=== PATIENT | female | born 1955 | race Caucasian/White ===

== ENCOUNTER 2019-06-21 16:09 | Inpatient (IN) | payer MEDICARE, OTHER ==
[~2019-06-21] VITALS: Ht 160 cm; Wt 73.9 kg
[2019-06-21] MEDS ORDERED: ONDANSETRON HCL 4MG/2ML INJ IV STA (18:40)
[2019-06-21] MEDS ORDERED: SODIUM CHLORIDE 0.9% 1000ML BAG (SEPSIS BOLUS) IV ONE (18:45)
[2019-06-21] MEDS ORDERED: PIPERACILLIN/TAZ 3.375G PREMIX 50 ML IV ONE (18:45)
[2019-06-21] MEDS ORDERED: VANCOMYCIN 1 G PREMIX 200 ML IV ONE (18:45)
[2019-06-21 19:27] LABS: CHLORIDE 107 mEq/L (98-107); INR 1.1; PROTHROMBIN TIME 11.1 sec (9.6-11.0)
[2019-06-21 19:28] LABS: BASOPHILS % 0.3 % (0.0-2.0); EOSINOPHILS % 0.4 % (0.0-5.0); HEMOGLOBIN. 10.2 g/dL (12.0-16.0); LYMPHOCYTES % 34.8 % (20.0-50.0); MEAN CORPUSCULAR HEMOGLOBIN 24.8 pg (28.0-32.0); MEAN CORPUSCULAR VOLUME 75.1 fL (81.0-99.0); MONOCYTES % 4.7 % (2.0-8.0); NEUTROPHILS % 59.8 % (40.0-76.0); PLATELET 436 x1000/uL (130-400); RED BLOOD CELL COUNT 4.13 mill/uL (4.2-5.4)
[2019-06-21] MEDS ORDERED: IOHEXOL-300 50 ML BOTTLE IV ONE (22:40)
[2019-06-21] MEDS ORDERED: IOHEXOL-300 100 ML BOTTLE ONE (22:41)
[2019-06-22] MEDS ORDERED: MORPHINE SULFATE 4 MG/ML CPJ (NOT FOR IM USE) IV STA (01:39)
[2019-06-22] MEDS ORDERED: ONDANSETRON HCL 4MG/2ML INJ IV STA (01:39)
[2019-06-22] MEDS ORDERED: VANCOMYCIN 1 G PREMIX 200 ML IV NR (02:45)
[2019-06-22] MEDS ORDERED: IPRATROPIUM/ALBUTEROL 0.5-3(2.5)MG/3ML NEB HHN PRN (11:30)
[2019-06-22] MEDS ORDERED: LORAZEPAM 0.5MG TABLET PO PRN (11:30)
[2019-06-22 12:49] LABS: CLARITY URINE CLOUDY (CLEAR); COLOR URINE YELLOW (YELLOW); KETONES URINE TRACE (NEGATIVE); LEUKOCYTE ESTERASE URINE 3+ (NEGATIVE); NITRITE URINE NEGATIVE (NEGATIVE); OCCULT BLOOD URINE TRACE (NEGATIVE); PROTEIN URINE TRACE (NEGATIVE); SPECIFIC GRAVITY URINE 1.024 (1.005-1.030); UROBILINOGEN URINE 0.2 E.U./dL (0.2-1.0)
[2019-06-22] MEDS: DEXT 5%/0.45% NACL 1000ML 1,000 ML IV SCH (12:56)
[2019-06-22 18:13] LABS: BASOPHILS % 0.5 % (0.0-2.0); EOSINOPHILS % 0.9 % (0.0-5.0); HEMATOCRIT. 29.3 % (36.0-48.0); LYMPHOCYTES % 28.4 % (20.0-50.0); MEAN CORPUSCULAR HEMOGLOBIN 25.7 pg (28.0-32.0); MEAN CORPUSCULAR VOLUME 75.2 fL (81.0-99.0); MEAN PLATELET VOLUME 6.7 fl (7.4-10.4); MONOCYTES % 5.4 % (2.0-8.0); NEUTROPHILS % 64.8 % (40.0-76.0); PLATELET 389 x1000/uL (130-400); RED BLOOD CELL COUNT 3.89 mill/uL (4.2-5.4); RED CELL DISTRIBUTION WIDTH 15.7 % (11.6-14.6)
[2019-06-22 18:21] LABS: CHLORIDE 111 mEq/L (98-107)
[2019-06-22 22:00] VITALS: BP 147/75
[2019-06-22] MEDS: SODIUM CHLORIDE 0.9% INJ 3ML FLUSH IVF SCH (22:00)
[2019-06-23] VITALS (12 sets, daily range): BP systolic 122–157; BP diastolic 53–92
[2019-06-23] MEDS: MORPHINE SULFATE 2 MG/ML CPJ (NOT FOR IM USE) IV PRN ×4 (00:55→22:07)
[2019-06-23] MEDS ORDERED: POTASSIUM CHLORIDE INJ 40 MEQ in DEXT 5% WATER 250 ML IV NR (01:00)
[2019-06-23] MEDS: DEXT 5%/0.45% NACL 1000ML 1,000 ML IV SCH ×2 (02:49→16:10)
[2019-06-23] MEDS: SODIUM CHLORIDE 0.9% INJ 3ML FLUSH IVF SCH ×3 (05:16→22:07)
[2019-06-23 06:52] LABS: BASOPHILS % 0.4 % (0.0-2.0); EOSINOPHILS % 1.6 % (0.0-5.0); HEMATOCRIT. 26.2 % (36.0-48.0); HEMOGLOBIN. 8.6 g/dL (12.0-16.0); LYMPHOCYTES % 48.4 % (20.0-50.0); MEAN CORPUSCULAR HEMOGLOBIN 24.7 pg (28.0-32.0); MEAN CORPUSCULAR VOLUME 74.6 fL (81.0-99.0); MONOCYTES % 7.4 % (2.0-8.0); NEUTROPHILS % 42.2 % (40.0-76.0); PLATELET 374 x1000/uL (130-400); RED CELL DISTRIBUTION WIDTH 15.6 % (11.6-14.6)
[2019-06-23 06:56] LABS: CHLORIDE 114 mEq/L (98-107)
[2019-06-23 07:26] LABS: LDL CHOLESTEROL 122 mg/dL (5-100)
[2019-06-23 07:27] LABS: HDL CHOLESTEROL 26 mg/dL (40-59)
[2019-06-23] MEDS: ENOXAPARIN 40MG/0.4ML SYR SUBCUT SCH (08:24)
[2019-06-23] MEDS: PIPERACILLIN/TAZOBACTAM 3.375 G in DEXT 5% WATER 100 ML IV SCH ×2 (11:17→17:26)
[2019-06-23] MEDS: VANCOMYCIN 750 MG PREMIX 150 ML IV SCH ×2 (12:01→22:13)
[2019-06-23 13:48] LABS: FERRITIN 177 ng/mL (10-291)
[2019-06-23 14:05] LABS: TOTAL IRON BINDING CAPACITY 203 ug/dL (250-450)
[2019-06-23 14:39] LABS: VITAMIN B12 SERUM >2000 pg/mL pg/mL (211-911)
[2019-06-23] MEDS: FERROUS SULFATE 325MG TABLET PO SCH (17:19)
[2019-06-23] MEDS: ASCORBIC ACID 250 MG TABLET PO SCH (21:00)
[2019-06-23] MEDS: FOLIC ACID 1 MG, THIAMINE HCL 100 MG, MVI, ADULT NO.1 10 ML in DEXTROSE 5% WATER 1,000 ML IV SCH ×4 (22:06)
[2019-06-23 23:33] LABS: HEPATITIS B SURFACE ANTIGEN NEGATIVE
[2019-06-24] VITALS (12 sets, daily range): BP systolic 119–158; BP diastolic 57–94
[2019-06-24 00:03] LABS: HEPATITIS A AB IGM NEGATIVE (NEGATIVE)
[2019-06-24] MEDS: PIPERACILLIN/TAZOBACTAM 3.375 G in DEXT 5% WATER 100 ML IV SCH ×4 (00:28→17:13)
[2019-06-24] MEDS: MORPHINE SULFATE 2 MG/ML CPJ (NOT FOR IM USE) IV PRN ×4 (05:21→20:18)
[2019-06-24] MEDS: SODIUM CHLORIDE 0.9% INJ 3ML FLUSH IVF SCH ×3 (05:22→22:00)
[2019-06-24] MEDS: FERROUS SULFATE 325MG TABLET PO SCH ×3 (07:30→17:04)
[2019-06-24] MEDS: ASCORBIC ACID 250 MG TABLET PO SCH ×3 (08:39→21:47)
[2019-06-24] MEDS: VANCOMYCIN 750 MG PREMIX 150 ML IV SCH (08:43)
[2019-06-24] MEDS: ENOXAPARIN 40MG/0.4ML SYR SUBCUT SCH (08:44)
[2019-06-24] MEDS: ALBUTEROL (0.083%) 2.5MG/3ML NEB HHN SCH (15:04)
[2019-06-24] MEDS: DEXT 5%/0.45% NACL 1000ML 1,000 ML IV SCH (17:14)
[2019-06-24] MEDS: FOLIC ACID 1 MG, THIAMINE HCL 100 MG, MVI, ADULT NO.1 10 ML in DEXTROSE 5% WATER 1,000 ML IV SCH ×4 (21:47)
[2019-06-25] VITALS (10 sets, daily range): BP systolic 115–145; BP diastolic 57–76
[2019-06-25] MEDS: PIPERACILLIN/TAZOBACTAM 3.375 G in DEXT 5% WATER 100 ML IV SCH ×3 (00:58→17:45)
[2019-06-25] MEDS: VANCOMYCIN 1 G PREMIX 200 ML IV SCH ×2 (02:20→20:19)
[2019-06-25] MEDS: DEXT 5%/0.45% NACL 1000ML 1,000 ML IV SCH ×2 (07:31→20:51)
[2019-06-25] MEDS: FERROUS SULFATE 325MG TABLET PO SCH ×3 (08:00→16:15)
[2019-06-25] MEDS: ALBUTEROL (0.083%) 2.5MG/3ML NEB HHN SCH ×3 (08:10→21:29)
[2019-06-25] MEDS: ASCORBIC ACID 250 MG TABLET PO SCH ×2 (09:00→20:53)
[2019-06-25 09:07] LABS: FOLATE HEMATOCRIT 27.6 % (34.0-46.6)
[2019-06-25 09:20] LABS: BASOPHILS % 0.4 % (0.0-2.0); EOSINOPHILS % 2.7 % (0.0-5.0); HEMATOCRIT. 27.5 % (36.0-48.0); HEMOGLOBIN. 9.2 g/dL (12.0-16.0); LYMPHOCYTES % 44.6 % (20.0-50.0); MEAN CORPUSCULAR VOLUME 74.4 fL (81.0-99.0); MEAN PLATELET VOLUME 7.3 fl (7.4-10.4); MONOCYTES % 8.9 % (2.0-8.0); NEUTROPHILS % 43.4 % (40.0-76.0); PLATELET 351 x1000/uL (130-400); RED BLOOD CELL COUNT 3.69 mill/uL (4.2-5.4)
[2019-06-25] MEDS: ENOXAPARIN 40MG/0.4ML SYR SUBCUT SCH (10:10)
[2019-06-25] MEDS: SODIUM CHLORIDE 0.9% INJ 3ML FLUSH IVF SCH ×2 (14:00→21:26)
[2019-06-25 14:12] LABS: FOLATE RBC 1844 ng/mL (>498)
[2019-06-25] MEDS: MORPHINE SULFATE 2 MG/ML CPJ (NOT FOR IM USE) IV PRN ×2 (16:12→20:52)
[2019-06-25] MEDS: FOLIC ACID 1 MG, THIAMINE HCL 100 MG, MVI, ADULT NO.1 10 ML in DEXTROSE 5% WATER 1,000 ML IV SCH ×4 (21:55)
[2019-06-26] VITALS (12 sets, daily range): BP systolic 103–158; BP diastolic 48–76
[2019-06-26] MEDS: PIPERACILLIN/TAZOBACTAM 3.375 G in DEXT 5% WATER 100 ML IV SCH ×4 (00:38→18:09)
[2019-06-26] MEDS: ALBUTEROL (0.083%) 2.5MG/3ML NEB HHN SCH ×4 (02:05→20:24)
[2019-06-26] MEDS: SODIUM CHLORIDE 0.9% INJ 3ML FLUSH IVF SCH ×3 (05:06→21:49)
[2019-06-26 05:08] LABS: BASOPHILS % 0.5 % (0.0-2.0); EOSINOPHILS % 3.3 % (0.0-5.0); HEMATOCRIT. 27.2 % (36.0-48.0); HEMOGLOBIN. 9.2 g/dL (12.0-16.0); LYMPHOCYTES % 44.5 % (20.0-50.0); MEAN CORPUSCULAR HEMOGLOBIN 25.2 pg (28.0-32.0); MEAN CORPUSCULAR VOLUME 74.4 fL (81.0-99.0); MEAN PLATELET VOLUME 6.7 fl (7.4-10.4); MONOCYTES % 10.5 % (2.0-8.0); NEUTROPHILS % 41.2 % (40.0-76.0); PLATELET 341 x1000/uL (130-400); RED BLOOD CELL COUNT 3.66 mill/uL (4.2-5.4); RED CELL DISTRIBUTION WIDTH 16.2 % (11.6-14.6)
[2019-06-26] MEDS: MORPHINE SULFATE 2 MG/ML CPJ (NOT FOR IM USE) IV PRN ×3 (05:25→19:03)
[2019-06-26 05:28] LABS: CHLORIDE 111 mEq/L (98-107)
[2019-06-26] MEDS: FERROUS SULFATE 325MG TABLET PO SCH ×3 (07:28→18:00)
[2019-06-26] MEDS: ASCORBIC ACID 250 MG TABLET PO SCH ×2 (09:00→21:00)
[2019-06-26] MEDS: ENOXAPARIN 40MG/0.4ML SYR SUBCUT SCH (09:00)
[2019-06-26] MEDS: DEXT 5%/0.45% NACL 1000ML 1,000 ML IV SCH ×2 (10:04→23:31)
[2019-06-26] MEDS ORDERED: POTASSIUM CHLORIDE INJ 40 MEQ in DEXT 5% WATER 250 ML IV SCH ×2 (12:00→18:00)
[2019-06-26] MEDS: VANCOMYCIN 1 G PREMIX 200 ML IV SCH (15:36)
[2019-06-26] MEDS: FOLIC ACID 1 MG, THIAMINE HCL 100 MG, MVI, ADULT NO.1 10 ML in DEXTROSE 5% WATER 1,000 ML IV SCH ×4 (21:49)
[2019-06-27] VITALS (11 sets, daily range): BP systolic 119–146; BP diastolic 61–73
[2019-06-27] MEDS: PIPERACILLIN/TAZOBACTAM 3.375 G in DEXT 5% WATER 100 ML IV SCH ×5 (00:26→23:02)
[2019-06-27] MEDS: ALBUTEROL (0.083%) 2.5MG/3ML NEB HHN SCH (02:12)
[2019-06-27] MEDS: SODIUM CHLORIDE 0.9% INJ 3ML FLUSH IVF SCH ×3 (05:20→21:19)
[2019-06-27 07:01] LABS: CHLORIDE 111 mEq/L (98-107)
[2019-06-27] MEDS ORDERED: BUPIVACAINE HCL/PF 0.5% (5MG/ML) 10ML ONE ×2 (07:09→07:56)
[2019-06-27] MEDS: FERROUS SULFATE 325MG TABLET PO SCH ×3 (08:00→18:00)
[2019-06-27] MEDS: ASCORBIC ACID 250 MG TABLET PO SCH ×2 (08:02→21:19)
[2019-06-27] MEDS: ENOXAPARIN 40MG/0.4ML SYR SUBCUT SCH (08:02)
[2019-06-27] MEDS ORDERED: ROCURONIUM BROMIDE 10MG/ML VIAL 5ML IV ONE (09:01)
[2019-06-27] MEDS ORDERED: FENTANYL CITRATE/PF 50MCG/ML 2ML VIAL ONE ×2 (09:01→09:53)
[2019-06-27] MEDS ORDERED: SUCCINYLCHOLINE CHLORIDE 200MG/10ML IV ONE (09:02)
[2019-06-27] MEDS ORDERED: GLYCOPYRROLATE 0.2 MG/ML 2ML VIAL ONE (09:02)
[2019-06-27] MEDS ORDERED: METOCLOPRAMIDE HCL 10MG/2ML VIAL ONE (09:02)
[2019-06-27] MEDS ORDERED: LIDOCAINE HCL/PF 1% 10 MG/ML 5ML VIAL ONE (09:02)
[2019-06-27] MEDS ORDERED: PROPOFOL 200MG/20ML VIAL IV ONE (09:02)
[2019-06-27] MEDS ORDERED: ONDANSETRON HCL 4MG/2ML INJ ONE (09:02)
[2019-06-27] MEDS ORDERED: SODIUM CHLORIDE 0.9% 10ML VIAL ONE ×2 (09:02→09:28)
[2019-06-27] MEDS ORDERED: PHENYLEPHRINE HCL 10 MG/ML 1ML (IV VIAL) IV ONE (09:02)
[2019-06-27] MEDS ORDERED: MIDAZOLAM HCL 2 MG/2 ML VIAL ONE (09:02)
[2019-06-27] MEDS ORDERED: EPHEDRINE SULFATE 50MG/ML VIAL ONE (09:02)
[2019-06-27] MEDS ORDERED: NEOSTIGMINE METHYLSULFATE 1MG/ML 10 ML VIAL ONE (09:02)
[2019-06-27] MEDS ORDERED: ALBUMIN HUMAN 12.5G/250ML (5%) IV ONE (09:11)
[2019-06-27] MEDS ORDERED: IOPAMIDOL 20 ML VIAL IT ONE (09:25)
[2019-06-27] MEDS ORDERED: IOPAMIDOL 61% 300/15 ML VIAL IT ONE (09:26)
[2019-06-27] MEDS ORDERED: DIATR MEGLU/DIATRIZOATE SOLN 30ML ONE (09:32)
[2019-06-27] MEDS ORDERED: SODIUM CHLORIDE 0.9% 1,000 ML IV ONE (10:23)
[2019-06-27] MEDS ORDERED: MORPHINE SULFATE 2 MG/ML CPJ (NOT FOR IM USE) IV PRN (10:30)
[2019-06-27] MEDS ORDERED: MEPERIDINE HCL/PF 25MG/ML CPJ IV PRN (10:30)
[2019-06-27] MEDS ORDERED: ONDANSETRON HCL 4MG/2ML INJ IV PRN (10:30)
[2019-06-27] MEDS: HYDROMORPHONE HCL/PF 2MG/ML CPJ IV PRN ×4 (10:49→11:22)
[2019-06-27] MEDS: MORPHINE SULFATE 2 MG/ML CPJ (NOT FOR IM USE) IV PRN ×3 (12:53→21:20)
[2019-06-27] MEDS: VANCOMYCIN 750 MG PREMIX 150 ML IV SCH (16:27)
[2019-06-27] MEDS: DEXT 5%/0.45% NACL 1000ML 1,000 ML IV SCH (16:28)
[2019-06-27] MEDS: FOLIC ACID 1 MG, THIAMINE HCL 100 MG, MVI, ADULT NO.1 10 ML in DEXTROSE 5% WATER 1,000 ML IV SCH ×4 (21:19)
[2019-06-28] VITALS (15 sets, daily range): BP systolic 107–153; BP diastolic 41–83
[2019-06-28] MEDS: DEXT 5%/0.45% NACL 1000ML 1,000 ML IV SCH ×2 (02:11→17:52)
[2019-06-28] MEDS: PIPERACILLIN/TAZOBACTAM 3.375 G in DEXT 5% WATER 100 ML IV SCH ×3 (05:05→17:20)
[2019-06-28] MEDS: SODIUM CHLORIDE 0.9% INJ 3ML FLUSH IVF SCH ×3 (05:06→22:00)
[2019-06-28] MEDS: VANCOMYCIN 750 MG PREMIX 150 ML IV SCH (06:07)
[2019-06-28] MEDS: ASCORBIC ACID 250 MG TABLET PO SCH ×2 (08:41→22:26)
[2019-06-28] MEDS: ENOXAPARIN 40MG/0.4ML SYR SUBCUT SCH (08:41)
[2019-06-28] MEDS: FERROUS SULFATE 325MG TABLET PO SCH ×3 (08:42→17:20)
[2019-06-28] MEDS: MORPHINE SULFATE 2 MG/ML CPJ (NOT FOR IM USE) IV PRN ×3 (09:14→17:51)
[2019-06-28] MEDS: FOLIC ACID 1 MG, THIAMINE HCL 100 MG, MVI, ADULT NO.1 10 ML in DEXTROSE 5% WATER 1,000 ML IV SCH ×4 (22:27)
[2019-06-29] VITALS (13 sets, daily range): BP systolic 104–149; BP diastolic 53–87
[2019-06-29] MEDS: PIPERACILLIN/TAZOBACTAM 3.375 G in DEXT 5% WATER 100 ML IV SCH ×4 (00:27→17:20)
[2019-06-29] MEDS: VANCOMYCIN 750 MG PREMIX 150 ML IV SCH ×2 (01:40→18:12)
[2019-06-29] MEDS: MORPHINE SULFATE 2 MG/ML CPJ (NOT FOR IM USE) IV PRN ×2 (04:19→18:23)
[2019-06-29] MEDS: SODIUM CHLORIDE 0.9% INJ 3ML FLUSH IVF SCH ×3 (06:12→22:42)
[2019-06-29] MEDS: ENOXAPARIN 40MG/0.4ML SYR SUBCUT SCH (09:21)
[2019-06-29] MEDS: FERROUS SULFATE 325MG TABLET PO SCH ×3 (09:21→18:14)
[2019-06-29] MEDS: ASCORBIC ACID 250 MG TABLET PO SCH ×2 (09:21→20:41)
[2019-06-29 09:40] LABS: CHLORIDE 109 mEq/L (98-107)
[2019-06-29] MEDS: POTASSIUM CHLORIDE 20MEQ/PACKET GT SCH ×2 (11:10→14:57)
[2019-06-29] MEDS: FOLIC ACID 1 MG, THIAMINE HCL 100 MG, MVI, ADULT NO.1 10 ML in DEXTROSE 5% WATER 1,000 ML IV SCH ×4 (20:42)
[2019-06-29] MEDS: HYDROCODONE/ACETAMINOPHEN 5/325MG TABLET PO PRN (20:42)
[2019-06-30] VITALS (8 sets, daily range): BP systolic 116–142; BP diastolic 60–80
[2019-06-30] MEDS: PIPERACILLIN/TAZOBACTAM 3.375 G in DEXT 5% WATER 100 ML IV SCH ×3 (01:31→11:42)
[2019-06-30] MEDS: SODIUM CHLORIDE 0.9% INJ 3ML FLUSH IVF SCH ×3 (05:35→22:01)
[2019-06-30] MEDS: HYDROCODONE/ACETAMINOPHEN 5/325MG TABLET PO PRN ×2 (05:51→11:42)
[2019-06-30] MEDS: ASCORBIC ACID 250 MG TABLET PO SCH ×2 (09:22→21:00)
[2019-06-30] MEDS: FERROUS SULFATE 325MG TABLET PO SCH ×3 (09:22→18:15)
[2019-06-30] MEDS: ENOXAPARIN 40MG/0.4ML SYR SUBCUT SCH (09:23)
[2019-06-30] MEDS: VANCOMYCIN 750 MG PREMIX 150 ML IV SCH (13:48)
[2019-06-30] MEDS: FOLIC ACID 1 MG, THIAMINE HCL 100 MG, MVI, ADULT NO.1 10 ML in DEXTROSE 5% WATER 1,000 ML IV SCH ×4 (23:05)
[2019-06-30] MEDS: MORPHINE SULFATE 2 MG/ML CPJ (NOT FOR IM USE) IV PRN (23:36)
[2019-07-01] VITALS (9 sets, daily range): BP systolic 119–148; BP diastolic 62–95
[2019-07-01] MEDS: VANCOMYCIN 750 MG PREMIX 150 ML IV SCH ×2 (05:26→23:43)
[2019-07-01] MEDS: MORPHINE SULFATE 2 MG/ML CPJ (NOT FOR IM USE) IV PRN ×3 (05:46→23:43)
[2019-07-01] MEDS: SODIUM CHLORIDE 0.9% INJ 3ML FLUSH IVF SCH ×3 (06:44→23:44)
[2019-07-01] MEDS: ASCORBIC ACID 250 MG TABLET PO SCH (08:06)
[2019-07-01] MEDS: ENOXAPARIN 40MG/0.4ML SYR SUBCUT SCH (08:06)
[2019-07-01] MEDS: FERROUS SULFATE 325MG TABLET PO SCH ×3 (08:06→17:53)
[2019-07-01] MEDS ORDERED: POTASSIUM CHLORIDE 20MEQ TABLET SR PO PRN (13:15)
[2019-07-01 14:11] LABS: BASOPHILS % 0.4 % (0.0-2.0); EOSINOPHILS % 3.4 % (0.0-5.0); HEMOGLOBIN. 9.1 g/dL (12.0-16.0); LYMPHOCYTES % 42.3 % (20.0-50.0); MEAN CORPUSCULAR HEMOGLOBIN 24.7 pg (28.0-32.0); MEAN CORPUSCULAR VOLUME 73.8 fL (81.0-99.0); MEAN PLATELET VOLUME 6.6 fl (7.4-10.4); MONOCYTES % 5.3 % (2.0-8.0); NEUTROPHILS % 48.6 % (40.0-76.0); PLATELET 423 x1000/uL (130-400); RED BLOOD CELL COUNT 3.66 mill/uL (4.2-5.4); RED CELL DISTRIBUTION WIDTH 16.4 % (11.6-14.6)
[2019-07-01 14:18] LABS: CHLORIDE 108 mEq/L (98-107)
[2019-07-01] MEDS ORDERED: DIATR MEGLU/DIATRIZOATE SOLN 30ML ONE (15:21)
[2019-07-01] MEDS: DEXT 5%/0.45% NACL 1000ML 1,000 ML IV SCH (16:52)
[2019-07-01] MEDS: FOLIC ACID 1 MG, THIAMINE HCL 100 MG, MVI, ADULT NO.1 10 ML in DEXTROSE 5% WATER 1,000 ML IV SCH ×4 (23:42)
[2019-07-02] VITALS (9 sets, daily range): BP systolic 118–150; BP diastolic 35–120
[2019-07-02] MEDS: ENOXAPARIN 40MG/0.4ML SYR SUBCUT SCH (08:14)
[2019-07-02] MEDS: MORPHINE SULFATE 2 MG/ML CPJ (NOT FOR IM USE) IV PRN ×3 (08:15→22:51)
[2019-07-02] MEDS: FERROUS SULFATE 325MG TABLET PO SCH ×3 (08:15→17:16)
[2019-07-02] MEDS: SODIUM CHLORIDE 0.9% INJ 3ML FLUSH IVF SCH ×2 (13:55→22:00)
[2019-07-02] MEDS ORDERED: POTASSIUM CHLORIDE 20MEQ/PACKET PO NR (14:00)
[2019-07-02] MEDS: FOLIC ACID 1 MG, THIAMINE HCL 100 MG, MVI, ADULT NO.1 10 ML in DEXTROSE 5% WATER 1,000 ML IV SCH ×8 (17:16→21:59)
[2019-07-02] MEDS: VANCOMYCIN 750 MG PREMIX 150 ML IV SCH (17:16)
[2019-07-02] MEDS: DEXT 5%/0.45% NACL 1000ML 1,000 ML IV SCH (17:24)
[2019-07-03] VITALS: BP 134/70
[2019-07-03 04:00] VITALS: BP 120/62
[2019-07-03] MEDS: SODIUM CHLORIDE 0.9% INJ 3ML FLUSH IVF SCH ×3 (06:00→21:44)
[2019-07-03 07:37] VITALS: BP 111/57
[2019-07-03] MEDS: FERROUS SULFATE 325MG TABLET PO SCH ×3 (09:48→18:34)
[2019-07-03] MEDS: MORPHINE SULFATE 10MG/5ML ORAL SOLN UDC PO PRN (09:48)
[2019-07-03] MEDS: ENOXAPARIN 40MG/0.4ML SYR SUBCUT SCH (09:49)
[2019-07-03 12:00] VITALS: BP 104/59
[2019-07-03] MEDS: VANCOMYCIN 750 MG PREMIX 150 ML IV SCH (12:53)
[2019-07-03 15:53] VITALS: BP 117/67
[2019-07-03] MEDS: DEXT 5%/0.45% NACL 1000ML 1,000 ML IV SCH (18:35)
[2019-07-03 20:00] VITALS: BP 130/65
[2019-07-03] MEDS: FOLIC ACID 1 MG, THIAMINE HCL 100 MG, MVI, ADULT NO.1 10 ML in DEXTROSE 5% WATER 1,000 ML IV SCH ×4 (21:44)
[2019-07-04] VITALS: BP 129/68
[2019-07-04 04:00] VITALS: BP 136/72
[2019-07-04] MEDS: MORPHINE SULFATE 10MG/5ML ORAL SOLN UDC PO PRN ×3 (06:10→18:28)
[2019-07-04] MEDS: SODIUM CHLORIDE 0.9% INJ 3ML FLUSH IVF SCH ×3 (07:38→23:03)
[2019-07-04 08:00] VITALS: BP 121/67
[2019-07-04] MEDS: FERROUS SULFATE 325MG TABLET PO SCH ×3 (09:36→18:17)
[2019-07-04] MEDS: ENOXAPARIN 40MG/0.4ML SYR SUBCUT SCH (09:36)
[2019-07-04 12:00] VITALS: BP 119/62
[2019-07-04 16:00] VITALS: BP 119/59
[2019-07-04 20:00] VITALS: BP 133/63
[2019-07-05] VITALS (7 sets, daily range): BP systolic 113–137; BP diastolic 59–72
[2019-07-05] MEDS: MORPHINE SULFATE 10MG/5ML ORAL SOLN UDC PO PRN ×2 (01:37→17:26)
[2019-07-05 07:34] LABS: BASOPHILS % 0.8 % (0.0-2.0); EOSINOPHILS % 2.9 % (0.0-5.0); HEMATOCRIT. 27.3 % (36.0-48.0); LYMPHOCYTES % 38.7 % (20.0-50.0); MEAN CORPUSCULAR HEMOGLOBIN 24.6 pg (28.0-32.0); MEAN CORPUSCULAR VOLUME 74.9 fL (81.0-99.0); MEAN PLATELET VOLUME 7.5 fl (7.4-10.4); NEUTROPHILS % 52.6 % (40.0-76.0); PLATELET 391 x1000/uL (130-400); RED BLOOD CELL COUNT 3.64 mill/uL (4.2-5.4); RED CELL DISTRIBUTION WIDTH 16.4 % (11.6-14.6)
[2019-07-05 07:47] LABS: CHLORIDE 107 mEq/L (98-107)
[2019-07-05] MEDS: SODIUM CHLORIDE 0.9% INJ 3ML FLUSH IVF SCH ×3 (07:54→21:22)
[2019-07-05] MEDS: FERROUS SULFATE 325MG TABLET PO SCH ×3 (08:40→17:10)
[2019-07-05] MEDS: ENOXAPARIN 40MG/0.4ML SYR SUBCUT SCH (08:40)
[2019-07-05 16:31] LABS: AMYLASE 110 IU/L (25-115)
[2019-07-05] MEDS: IPRATROPIUM/ALBUTEROL 0.5-3(2.5)MG/3ML NEB HHN SCH ×2 (18:42→21:15)
[2019-07-05] MEDS: GUAIFENESIN 600MG ER TABLET PO SCH (20:25)
[2019-07-06] VITALS: BP 127/68
[2019-07-06] MEDS: IPRATROPIUM/ALBUTEROL 0.5-3(2.5)MG/3ML NEB HHN SCH ×4 (01:04→20:20)
[2019-07-06 04:00] VITALS: BP 122/57
[2019-07-06] MEDS: MORPHINE SULFATE 10MG/5ML ORAL SOLN UDC PO PRN ×2 (05:08→11:56)
[2019-07-06] MEDS: SODIUM CHLORIDE 0.9% INJ 3ML FLUSH IVF SCH ×2 (05:08→14:02)
[2019-07-06 07:11] LABS: CHLORIDE 111 mEq/L (98-107)
[2019-07-06 07:14] LABS: BASOPHILS % 0.7 % (0.0-2.0); EOSINOPHILS % 2.5 % (0.0-5.0); HEMATOCRIT. 25.5 % (36.0-48.0); HEMOGLOBIN. 8.6 g/dL (12.0-16.0); LYMPHOCYTES % 34.9 % (20.0-50.0); MEAN CORPUSCULAR HEMOGLOBIN 25.2 pg (28.0-32.0); MEAN CORPUSCULAR VOLUME 74.8 fL (81.0-99.0); MEAN PLATELET VOLUME 7.4 fl (7.4-10.4); MONOCYTES % 8.2 % (2.0-8.0); NEUTROPHILS % 53.7 % (40.0-76.0); PLATELET 367 x1000/uL (130-400); RED BLOOD CELL COUNT 3.41 mill/uL (4.2-5.4); RED CELL DISTRIBUTION WIDTH 16.7 % (11.6-14.6)
[2019-07-06 08:00] VITALS: BP 116/64
[2019-07-06] MEDS: FERROUS SULFATE 325MG TABLET PO SCH ×3 (09:22→18:41)
[2019-07-06] MEDS: ENOXAPARIN 40MG/0.4ML SYR SUBCUT SCH (09:22)
[2019-07-06] MEDS: GUAIFENESIN 600MG ER TABLET PO SCH ×2 (09:22→21:00)
[2019-07-06 12:00] VITALS: BP 122/64
[2019-07-06 16:00] VITALS: BP 113/60
[2019-07-06 20:00] VITALS: BP 114/59
[2019-07-06] MEDS: MORPHINE SULFATE 10MG/5ML ORAL SOLN UDC PEG PRN (21:03)
[2019-07-06] MEDS: GUAIFENESIN 200MG/10ML SUGAR FREE UDC PO PRN (21:59)
[2019-07-07] VITALS: BP 124/68
[2019-07-07] MEDS: IPRATROPIUM/ALBUTEROL 0.5-3(2.5)MG/3ML NEB HHN SCH ×3 (02:24→22:10)
[2019-07-07 04:00] VITALS: BP 108/61
[2019-07-07 07:12] LABS: CHLORIDE 108 mEq/L (98-107)
[2019-07-07 08:00] VITALS: BP 117/67
[2019-07-07] MEDS: GUAIFENESIN 600MG ER TABLET PO SCH ×2 (09:00→21:00)
[2019-07-07] MEDS: GUAIFENESIN 200MG/10ML SUGAR FREE UDC PO PRN ×4 (09:28→21:26)
[2019-07-07] MEDS: ENOXAPARIN 40MG/0.4ML SYR SUBCUT SCH (09:28)
[2019-07-07] MEDS: FERROUS SULFATE 325MG TABLET PO SCH ×3 (09:28→16:50)
[2019-07-07] MEDS: MORPHINE SULFATE 10MG/5ML ORAL SOLN UDC PEG PRN ×2 (09:42→17:01)
[2019-07-07 11:48] LABS: BASOPHILS % 0.8 % (0.0-2.0); EOSINOPHILS % 1.6 % (0.0-5.0); HEMATOCRIT. 26.1 % (36.0-48.0); HEMOGLOBIN. 8.6 g/dL (12.0-16.0); MEAN CORPUSCULAR HEMOGLOBIN 24.5 pg (28.0-32.0); MEAN CORPUSCULAR VOLUME 74.4 fL (81.0-99.0); MEAN PLATELET VOLUME 7.5 fl (7.4-10.4); NEUTROPHILS % 57.6 % (40.0-76.0); PLATELET 380 x1000/uL (130-400); RED BLOOD CELL COUNT 3.51 mill/uL (4.2-5.4); RED CELL DISTRIBUTION WIDTH 16.8 % (11.6-14.6)
[2019-07-07 12:00] VITALS: BP 97/50
[2019-07-07] MEDS: SODIUM CHLORIDE 0.9% INJ 3ML FLUSH IVF SCH (13:08)
[2019-07-07 16:00] VITALS: BP 145/62
[2019-07-07 20:00] VITALS: BP 113/56
[2019-07-08] VITALS: BP 112/58
[2019-07-08] MEDS: IPRATROPIUM/ALBUTEROL 0.5-3(2.5)MG/3ML NEB HHN SCH ×4 (01:46→21:40)
[2019-07-08] MEDS: MORPHINE SULFATE 10MG/5ML ORAL SOLN UDC PEG PRN ×2 (06:03→12:18)
[2019-07-08] MEDS: GUAIFENESIN 200MG/10ML SUGAR FREE UDC PO PRN (06:39)
[2019-07-08 08:00] VITALS: BP 124/55
[2019-07-08] MEDS: FERROUS SULFATE 325MG TABLET PO SCH ×3 (08:28→16:51)
[2019-07-08] MEDS: SODIUM CHLORIDE 0.9% INJ 3ML FLUSH IVF SCH ×4 (08:28→22:07)
[2019-07-08] MEDS: ENOXAPARIN 40MG/0.4ML SYR SUBCUT SCH (08:29)
[2019-07-08] MEDS: GUAIFENESIN 600MG ER TABLET PO SCH ×2 (08:30→22:06)
[2019-07-08 09:31] LABS: BASOPHILS % 0.6 % (0.0-2.0); EOSINOPHILS % 4.1 % (0.0-5.0); HEMATOCRIT. 26.5 % (36.0-48.0); HEMOGLOBIN. 8.7 g/dL (12.0-16.0); LYMPHOCYTES % 36.3 % (20.0-50.0); MEAN CORPUSCULAR HEMOGLOBIN 24.5 pg (28.0-32.0); MEAN CORPUSCULAR VOLUME 74.4 fL (81.0-99.0); MONOCYTES % 8.4 % (2.0-8.0); NEUTROPHILS % 50.6 % (40.0-76.0); PLATELET 357 x1000/uL (130-400); RED BLOOD CELL COUNT 3.56 mill/uL (4.2-5.4); RED CELL DISTRIBUTION WIDTH 16.7 % (11.6-14.6)
[2019-07-08 09:53] LABS: CHLORIDE 107 mEq/L (98-107)
[2019-07-08 12:00] VITALS: BP 141/40
[2019-07-08 16:00] VITALS: BP 125/75
[2019-07-08 20:00] VITALS: BP 111/67
[2019-07-09] VITALS (7 sets, daily range): BP systolic 97–128; BP diastolic 61–77
[2019-07-09] MEDS: IPRATROPIUM/ALBUTEROL 0.5-3(2.5)MG/3ML NEB HHN SCH ×3 (03:53→14:18)
[2019-07-09] MEDS: SODIUM CHLORIDE 0.9% INJ 3ML FLUSH IVF SCH ×2 (08:18→15:56)
[2019-07-09] MEDS: ENOXAPARIN 40MG/0.4ML SYR SUBCUT SCH (08:18)
[2019-07-09] MEDS: GUAIFENESIN 600MG ER TABLET PO SCH (08:18)
[2019-07-09 12:24] LABS: CHLORIDE 107 mEq/L (98-107)
[2019-07-09] MEDS ORDERED: LOPERAMIDE HCL 1 MG/7.5 ML 240ML BOTTLE PO PRN (12:45)
[2019-07-09] MEDS ORDERED: LOPERAMIDE 1 MG/7.5 ML UDC PO PRN (12:45)
== END 2019-07-09 21:32 | disposition home or self-care (01) | DRG 853 ==
LOC: ER 16:30 → CANBEDREQ 06-22 07:01 → 5EST 06-22 10:43 → ENRESERV 06-22 20:01 → 6EST 07-04 01:36
PROVIDERS: ADMIT Family Medicine; ATTEND Family Medicine
PROC: 0DH60UZ Insertion of Feeding Device into Stomach, Open Approach (ICD-10-PCS; principal; 2019-06-27)
PROC: 02HV33Z Insertion of Infusion Device into Superior Vena Cava, Percutaneous Approach (ICD-10-PCS; 2019-07-01)
PROC: B548ZZA Ultrasonography of Superior Vena Cava, Guidance (ICD-10-PCS; 2019-07-01)
DX: A41.9 Sepsis, unspecified organism (principal); E43 Unspecified severe protein-calorie malnutrition; K22.3 Perforation of esophagus; L02.11 Cutaneous abscess of neck; N39.0 Urinary tract infection, site not specified; L89.159 Pressure ulcer of sacral region, unspecified stage; R74.0 Nonspecific elevation of levels of transaminase and lactic acid dehydrogenase [LDH]; D50.9 Iron deficiency anemia, unspecified; J45.909 Unspecified asthma, uncomplicated; K76.89 Other specified diseases of liver; Z93.1 Gastrostomy status; Z93.0 Tracheostomy status; Z68.28 Body mass index [BMI] 28.0-28.9, adult
CPT/HCPCS: 36415; 70491; 71045; 71260; 74018; 76700; 76937; 80048; 80053; 80061; 80076; 80202; 81003; 82150; 82248; 82607; 82728; 82747; 83540; 83550; 83605; 83615; 84134; 84145; 84484; 85014; 85025; 86705; 86709; 86803; 87340; 93005; 94640; 96365; 96375; 96376; 97110; 97163; 97535; 99284; 99285; A6261; C1725; C1893; J0330; J1170; J1650; J2250; J2270; J2370; J2405; J2543; J2704; J2710; J2765; J3010; J3370; J3411; J3480; J3490; J7030; J7040; J7042; J7060; J7070; J7611; J7620; P9041; Q9963; Q9966; Q9967

== ENCOUNTER 2019-07-10 14:09 | Inpatient (IN) | payer MEDICARE, OTHER ==
[~2019-07-10] VITALS: Ht 160 cm; Wt 67.8 kg
[2019-07-10] MEDS ORDERED: SODIUM CHLORIDE 0.9% 1,000 ML IV ONE (14:57)
[2019-07-10 15:49] LABS: BASOPHILS % 0.8 % (0.0-2.0); EOSINOPHILS % 3.1 % (0.0-5.0); HEMATOCRIT. 29.1 % (36.0-48.0); HEMOGLOBIN. 9.7 g/dL (12.0-16.0); MEAN CORPUSCULAR HEMOGLOBIN 24.4 pg (28.0-32.0); MEAN CORPUSCULAR VOLUME 73.4 fL (81.0-99.0); MEAN PLATELET VOLUME 7.8 fl (7.4-10.4); MONOCYTES % 5.8 % (2.0-8.0); NEUTROPHILS % 61.3 % (40.0-76.0); PLATELET 448 x1000/uL (130-400); RED BLOOD CELL COUNT 3.97 mill/uL (4.2-5.4); RED CELL DISTRIBUTION WIDTH 16.7 % (11.6-14.6)
[2019-07-10 15:51] LABS: CHLORIDE 110 mEq/L (98-107)
[2019-07-10] MEDS ORDERED: IOHEXOL-300 100 ML BOTTLE ONE (17:16)
[2019-07-10] MEDS ORDERED: ONDANSETRON HCL 4MG/2ML INJ IV PRN (17:45)
[2019-07-10] MEDS ORDERED: IPRATROPIUM/ALBUTEROL 0.5-3(2.5)MG/3ML NEB HHN PRN (17:45)
[2019-07-10] MEDS ORDERED: DIPHENHYDRAMINE 50MG/ML VIAL IV PRN (17:45)
[2019-07-10 18:09] LABS: PHOSPHORUS 4.2 mg/dL (2.5-4.9)
[2019-07-10] MEDS: ACETAMINOPHEN 325MG TABLET PO PRN (18:19)
[2019-07-10] MEDS: SODIUM CHLORIDE 0.9% 1,000 ML IV SCH (18:19)
[2019-07-11] MEDS: ACETAMINOPHEN 325MG TABLET PO PRN ×2 (06:26→23:47)
[2019-07-11] MEDS: SODIUM CHLORIDE 0.9% 1,000 ML IV SCH ×2 (06:58→23:22)
[2019-07-11 07:50] LABS: BASOPHILS % 0.4 % (0.0-2.0); EOSINOPHILS % 2.5 % (0.0-5.0); HEMATOCRIT. 26.8 % (36.0-48.0); HEMOGLOBIN. 8.9 g/dL (12.0-16.0); MEAN CORPUSCULAR HEMOGLOBIN 24.5 pg (28.0-32.0); MEAN CORPUSCULAR VOLUME 73.7 fL (81.0-99.0); MEAN PLATELET VOLUME 7.3 fl (7.4-10.4); MONOCYTES % 7.1 % (2.0-8.0); PLATELET 413 x1000/uL (130-400); RED BLOOD CELL COUNT 3.64 mill/uL (4.2-5.4); RED CELL DISTRIBUTION WIDTH 16.6 % (11.6-14.6)
[2019-07-11 07:59] LABS: CHLORIDE 111 mEq/L (98-107)
[2019-07-11 08:05] LABS: LDL CHOLESTEROL 122 mg/dL (5-100)
[2019-07-11 08:06] LABS: HDL CHOLESTEROL 23 mg/dL (40-59)
[2019-07-11 20:00] VITALS: BP 149/68
[2019-07-11 20:30] VITALS: BP 146/68
[2019-07-11] MEDS: GUAIFENESIN 200MG/10ML SUGAR FREE UDC PO PRN (23:23)
[2019-07-12] VITALS: BP 132/58
[2019-07-12 04:00] VITALS: BP 138/62
[2019-07-12 08:00] VITALS: BP 133/63
[2019-07-12] MEDS: SODIUM CHLORIDE 0.9% 1,000 ML IV SCH ×2 (08:58→22:29)
[2019-07-12] MEDS: GUAIFENESIN 200MG/10ML SUGAR FREE UDC PO PRN ×3 (09:01→22:29)
[2019-07-12] MEDS: ACETAMINOPHEN 325MG TABLET PO PRN ×3 (09:02→21:37)
[2019-07-12 16:00] VITALS: BP 131/40
[2019-07-12 20:00] VITALS: BP 148/60
[2019-07-13] VITALS: BP 133/52
[2019-07-13 04:00] VITALS: BP 132/58
[2019-07-13] MEDS: GUAIFENESIN 200MG/10ML SUGAR FREE UDC PO PRN ×3 (05:49→20:54)
[2019-07-13] MEDS: ACETAMINOPHEN 325MG TABLET PO PRN ×3 (05:50→20:54)
[2019-07-13 08:00] VITALS: BP 136/64
[2019-07-13 08:27] LABS: BASOPHILS % 0.3 % (0.0-2.0); EOSINOPHILS % 1.4 % (0.0-5.0); HEMATOCRIT. 23.6 % (36.0-48.0); HEMOGLOBIN. 7.7 g/dL (12.0-16.0); LYMPHOCYTES % 28.7 % (20.0-50.0); MEAN CORPUSCULAR HEMOGLOBIN 24.4 pg (28.0-32.0); MEAN CORPUSCULAR VOLUME 74.5 fL (81.0-99.0); MEAN PLATELET VOLUME 7.7 fl (7.4-10.4); MONOCYTES % 6.1 % (2.0-8.0); NEUTROPHILS % 63.5 % (40.0-76.0); PLATELET 369 x1000/uL (130-400); RED BLOOD CELL COUNT 3.17 mill/uL (4.2-5.4); RED CELL DISTRIBUTION WIDTH 16.9 % (11.6-14.6)
[2019-07-13 08:32] LABS: CHLORIDE 121 mEq/L (98-107)
[2019-07-13] MEDS: SODIUM CHLORIDE 0.9% 1,000 ML IV SCH (11:49)
[2019-07-13 12:00] VITALS: BP 145/61
[2019-07-13] MEDS: CLONIDINE 0.1MG TABLET PO PRN (15:35)
[2019-07-13 16:00] VITALS: BP 161/73
[2019-07-13 20:00] VITALS: BP 140/65
[2019-07-14] VITALS: BP 121/53
[2019-07-14] MEDS: SODIUM CHLORIDE 0.9% 1,000 ML IV SCH ×2 (01:09→15:29)
[2019-07-14] MEDS: GUAIFENESIN 200MG/10ML SUGAR FREE UDC PO PRN ×3 (03:59→18:19)
[2019-07-14] MEDS: ACETAMINOPHEN 325MG TABLET PO PRN (03:59)
[2019-07-14 04:00] VITALS: BP 138/66
[2019-07-14 06:50] LABS: BASOPHILS % 1.1 % (0.0-2.0); EOSINOPHILS % 2.6 % (0.0-5.0); HEMATOCRIT. 22.4 % (36.0-48.0); HEMOGLOBIN. 7.5 g/dL (12.0-16.0); LYMPHOCYTES % 29.5 % (20.0-50.0); MEAN CORPUSCULAR HEMOGLOBIN 25.1 pg (28.0-32.0); MEAN CORPUSCULAR VOLUME 74.8 fL (81.0-99.0); MEAN PLATELET VOLUME 7.9 fl (7.4-10.4); MONOCYTES % 5.5 % (2.0-8.0); NEUTROPHILS % 61.3 % (40.0-76.0); PLATELET 333 x1000/uL (130-400)
[2019-07-14 07:07] LABS: CHLORIDE 117 mEq/L (98-107)
[2019-07-14 08:00] VITALS: BP 151/71
[2019-07-14] MEDS: MORPHINE SULFATE 2 MG/ML CPJ (NOT FOR IM USE) IV PRN ×3 (11:07→21:48)
[2019-07-14 12:00] VITALS: BP 131/59
[2019-07-14 16:00] VITALS: BP 125/68
[2019-07-14] MEDS: CLONIDINE 0.1MG TABLET PO PRN (18:19)
[2019-07-14 20:00] VITALS: BP 137/61
[2019-07-15] VITALS: BP 137/50
[2019-07-15] MEDS: MORPHINE SULFATE 2 MG/ML CPJ (NOT FOR IM USE) IV PRN ×5 (01:49→21:28)
[2019-07-15] MEDS: GUAIFENESIN 200MG/10ML SUGAR FREE UDC PO PRN ×5 (01:53→21:27)
[2019-07-15 04:00] VITALS: BP 119/53
[2019-07-15] MEDS: SODIUM CHLORIDE 0.9% 1,000 ML IV SCH (04:31)
[2019-07-15 07:06] LABS: BASOPHILS % 0.8 % (0.0-2.0); HEMATOCRIT. 22.7 % (36.0-48.0); HEMOGLOBIN. 7.5 g/dL (12.0-16.0); LYMPHOCYTES % 37.4 % (20.0-50.0); MEAN CORPUSCULAR HEMOGLOBIN 24.6 pg (28.0-32.0); MEAN CORPUSCULAR VOLUME 74.1 fL (81.0-99.0); MEAN PLATELET VOLUME 7.9 fl (7.4-10.4); MONOCYTES % 5.9 % (2.0-8.0); NEUTROPHILS % 51.9 % (40.0-76.0); PLATELET 344 x1000/uL (130-400); RED BLOOD CELL COUNT 3.07 mill/uL (4.2-5.4)
[2019-07-15 07:24] LABS: CHLORIDE 115 mEq/L (98-107)
[2019-07-15 08:00] VITALS: BP 131/62
[2019-07-15 12:00] VITALS: BP 111/43
[2019-07-15 16:00] VITALS: BP 145/58
[2019-07-15 20:00] VITALS: BP 142/61
[2019-07-16] VITALS: BP 132/62
[2019-07-16] MEDS: MORPHINE SULFATE 2 MG/ML CPJ (NOT FOR IM USE) IV PRN ×4 (03:49→20:52)
[2019-07-16 04:00] VITALS: BP 149/70
[2019-07-16] MEDS: SODIUM CHLORIDE 0.9% 1,000 ML IV SCH ×2 (05:48→20:18)
[2019-07-16 08:00] VITALS: BP 119/58
[2019-07-16] MEDS: GUAIFENESIN 200MG/10ML SUGAR FREE UDC PO PRN ×3 (09:59→20:49)
[2019-07-16 12:00] VITALS: BP 115/58
[2019-07-16 16:00] VITALS: BP 145/75
[2019-07-16 20:00] VITALS: BP 122/80
[2019-07-17] VITALS: BP 135/64
[2019-07-17] MEDS: MORPHINE SULFATE 2 MG/ML CPJ (NOT FOR IM USE) IV PRN ×4 (02:15→23:24)
[2019-07-17] MEDS: GUAIFENESIN 200MG/10ML SUGAR FREE UDC PO PRN ×4 (02:20→23:44)
[2019-07-17 04:00] VITALS: BP 141/64
[2019-07-17 08:00] VITALS: BP 137/92
[2019-07-17 12:00] VITALS: BP 140/69
[2019-07-17 16:00] VITALS: BP 140/62
[2019-07-17] MEDS: SODIUM CHLORIDE 0.9% 1,000 ML IV SCH (17:14)
[2019-07-17 20:00] VITALS: BP 133/79
[2019-07-18] VITALS: BP 113/51
[2019-07-18 04:00] VITALS: BP 131/57
[2019-07-18 06:59] LABS: BASOPHILS % 0.8 % (0.0-2.0); EOSINOPHILS % 4.1 % (0.0-5.0); HEMATOCRIT. 23.9 % (36.0-48.0); HEMOGLOBIN. 8.1 g/dL (12.0-16.0); LYMPHOCYTES % 42.3 % (20.0-50.0); MEAN CORPUSCULAR HEMOGLOBIN 24.6 pg (28.0-32.0); MEAN CORPUSCULAR VOLUME 72.8 fL (81.0-99.0); MEAN PLATELET VOLUME 8.1 fl (7.4-10.4); MONOCYTES % 7.4 % (2.0-8.0); NEUTROPHILS % 45.4 % (40.0-76.0); PLATELET 369 x1000/uL (130-400); RED BLOOD CELL COUNT 3.29 mill/uL (4.2-5.4); RED CELL DISTRIBUTION WIDTH 17.2 % (11.6-14.6)
[2019-07-18 07:07] LABS: CHLORIDE 109 mEq/L (98-107)
[2019-07-18 08:00] VITALS: BP 142/72
[2019-07-18] MEDS: GUAIFENESIN 200MG/10ML SUGAR FREE UDC PO PRN ×2 (09:09→14:19)
[2019-07-18] MEDS: MORPHINE SULFATE 2 MG/ML CPJ (NOT FOR IM USE) IV PRN ×2 (09:10→14:20)
[2019-07-18 12:00] VITALS: BP 138/71
[2019-07-18 16:00] VITALS: BP 140/71
[2019-07-18] MEDS: ACETAMINOPHEN 325MG TABLET PO PRN (16:32)
== END 2019-07-18 17:16 | DRG 552 ==
LOC: ER 14:09 → 6EST 07-11 18:08 → ENRESERV 07-11 19:44
PROVIDERS: ADMIT Internal Medicine; ATTEND Internal Medicine
DX: M54.2 Cervicalgia (principal); E46 Unspecified protein-calorie malnutrition; E86.0 Dehydration; R11.0 Nausea; I10 Essential (primary) hypertension; K76.89 Other specified diseases of liver; D50.9 Iron deficiency anemia, unspecified; D64.9 Anemia, unspecified; R74.0 Nonspecific elevation of levels of transaminase and lactic acid dehydrogenase [LDH]; J45.909 Unspecified asthma, uncomplicated; Z93.1 Gastrostomy status; Z68.26 Body mass index [BMI] 26.0-26.9, adult; Z93.0 Tracheostomy status
CPT/HCPCS: 36415; 70491; 71260; 74177; 80048; 80053; 80061; 83735; 83880; 84100; 84134; 84443; 84484; 85025; 87070; 87077; 87186; 93005; 93970; 96360; 99285; C1893; J2270; J7030; Q9967